=== PATIENT | male | born 1995 | race Caucasian/White ===

== ENCOUNTER 2023-07-03 23:59 | Observation (INO) ==
[2023-07-04] MEDS: SODIUM CHLORIDE 0.9% 1,000 ML IV STA (00:23)
[2023-07-04] MEDS: ONDANSETRON INJ 2 MG/ML 2 ML VIAL IV STA (00:25)
[2023-07-04] MEDS: HYDROmorphone INJ 0.5 MG/0.5 ML SYR IV STA ×2 (00:25→01:17)
[2023-07-04 00:50] LABS: Hemoglobin 13.7 g/dl (14.0-18.0); Mean Corpuscular Hemoglobin 26.4 pg (25.0-34.0); Mean Corpuscular Hgb Conc 33.4 g/dL (32.0-36.0); Platelet Count 271 K/uL (130-400); RDW Coefficient of Variation 12.5 % (11.5-14.5); RDW Standard Deviation 35.6 fL (36.4-46.3); Red Blood Count 5.19 M/uL (4.70-6.10); White Blood Count 9.19 K/ul (4.8-10.8)
[2023-07-04 00:56] LABS: Albumin Globulin Ratio 1.8 (0.9-2); Albumin Level 4.9 gm/dl (3.4-5.0); BUN Creatinine Ratio 15.4 (10-20); Bilirubin,Total 0.8 mg/dl (0.2-1.0); Calcium 10.1 mg/dl (8.6-10.3); Creatinine Clr Calc Pharmacy 105.4 ml/min; Est GFR (African American) 115.1 ml/min; Est GFR (Non-African American) 99.3 ml/min; Globulin 2.8 gm/dl (2.5-4.0); Potassium 3.1 mmol/L (3.5-5.1); Total Protein 7.7 gm/dl (6.0-8.3)
[2023-07-04] MEDS: OPTIRAY 320 500ml IV ONE (01:02)
--- NOTE | 2023-07-04 01:35 | CT Scan Report ---
Exam(s): CT ABDOMEN + PELVIS With Contrast IV Amt: 84 ML OPTIRAY 320 EXAM: CT Abdomen and Pelvis With Intravenous Contrast CLINICAL HISTORY: h/o gastrectomy, LUQ pain, SBO?. TECHNIQUE: Axial computed tomography images of the abdomen and pelvis with intravenous contrast. CTDI is 9.49 mGy and DLP is 475.47 mGy-cm. Automated exposure control was utilized for the study. A dose lowering technique was utilized adhering to the principles of ALARA. CONTRAST: Patient received 84 ML OPTIRAY 320 of IV contrast COMPARISON: CT abdomen and pelvis without/with contrast dated 01/18/2023 FINDINGS: Lung bases: Unremarkable. No mass. No consolidation. Mediastinum: Similar hiatal hernia. ABDOMEN: Liver: Periportal lucency/edema noted. Gallbladder and bile ducts: Unremarkable. No calcified stones. No ductal dilation. Pancreas: Unremarkable. No mass. No ductal dilation. Spleen: Unremarkable. No splenomegaly. Adrenals: Unremarkable. No mass. Kidneys and ureters: Unremarkable. No solid mass. No hydronephrosis. Stomach and bowel: Stable postsurgical changes consistent with previous gastric surgery. There is new mesenteric swirling in the central left abdomen with focal narrowing and attenuation of both the mid superior mesenteric artery and vein with mesenteric edema distally (series 3; images 144-170 and series 300; image 38). There is fluid and gas distention of several small bowel loops in the midline abdomen. No asymmetric bowel mucosal abnormality. PELVIS: Appendix: A normal caliber appendix is noted along the posterior aspect of the cecum. Bladder: Unremarkable. No mass. Reproductive: Unremarkable as visualized. ABDOMEN and PELVIS: Intraperitoneal space: Trace free fluid in the pelvis. No loculation. No free air. Bones/joints: No acute fracture. No dislocation. Soft tissues: Unremarkable. Vasculature: Unremarkable. No abdominal aortic aneurysm. Lymph nodes: Unremarkable. No enlarged lymph nodes. IMPRESSION: 1. There is new mesenteric swirling in the central left abdomen with focal narrowing and attenuation of both the mid superior mesenteric artery and vein with mesenteric edema distally (series 3; images 144-170 and series 300; image 38). 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 Urgent surgical consultation recommended. No pneumatosis or pneumoperitoneum identified at this time. 2. Fluid and gas distention of several small bowel loops in the midline abdomen. Favor developing enteritis or possible bowel obstruction. No asymmetric bowel mucosal abnormality. 3. Periportal lucency/edema noted. Favor hypervolemia over acute hepatitis or cholangitis given. Distention of the IVC. Communications: Call Doctor Volvulus Electronically signed by: Juan Sequeira MD 07/04/23 01:34 AM
[2023-07-04 01:50] LABS: Basophils # (auto) 0.07 K/uL (0.00-0.20); Basophils % (auto) 0.8 %; Eosinophils # (auto) 0.38 K/uL (0.00-0.50); Eosinophils % (auto) 4.1 %; Immature Granulocytes # (auto) 0.03 K/uL (0.01-0.20); Immature Granulocytes % (auto) 0.3 %; Lymphocytes # (auto) 4.88 K/uL (1.20-3.40); Lymphocytes % (auto) 53.1 %; Monocytes # (auto) 0.76 K/uL (0.11-0.59); Monocytes % (auto) 8.3 %; Neutrophils # (auto) 3.07 K/uL (1.40-6.50); Neutrophils % (auto) 33.4 %
[2023-07-04] MEDS: PIPERACILLIN/TAZOBACTAM 4.5 GM/100 ML BAG IV ONE (01:56)
--- NOTE | 2023-07-04 02:07 | Emergency Department Note ---
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 He states it began after eating dinner. Patient states he did have some retching, but he is unable to vomit. He states he had a sudden onset of pain that "put him on the ground." He has had intermittent episodes like this in the past but they seem to resolve. Had his original surgery at the [facility]. REVIEW OF SYSTEMS: A review of systems was performed with positives and pertinent negatives listed in the history of present illness. 10 systems were reviewed and are otherwise negative. ALLERGIES: see below MEDICATIONS: see below PMH: see below SOCIAL HISTORY: see below DDx: Bowel obstruction, viral gastroenteritis, dehydration, electrolyte abnormality, perforation, kidney stone among others PHYSICAL EXAM: Vital signs reviewed. General: Well-appearing 27 yo male, in some discomfort HEENT: No scleral icterus, PERRLA, neck supple. Moist mucous membrane Cardiovascular: Regular rate and rhythm, no extra sounds. Pulmonary: Clear to auscultation bilaterally, normal work of breathing. Abdomen: Soft, diffusely tender to palpation, positive tympany to percussion, slightly distended, positive bowel sounds. Musculoskeletal: Atraumatic, no peripheral edema. Neurologic: Patient awake alert and oriented x 3, speech is clear Skin: Warm, dry, no rash EMERGENCY DEPARTMENT COURSE/MDM: This patient was evaluated and appeared to be in no significant discomfort. IV access was obtained and laboratory work was drawn. Patient was placed on the air sampling and monitoring. Vital signs are noted to be stable. Patient was hydrated with normal saline solution, given IV Dilaudid and Zofran for his discomfort. KUB was performed and reveals multiple dilated loops of bowel, but no free air or clear evidence of obstruction to my review. CT imaging of the abdomen pelvis was performed given the patient's tympany and pain, and history of gastrectomy. Patient's laboratory work reveals a lactate of 2.3. Normal WBC and liver enzymes. CT imaging of the abdomen pelvis is reported by radiology as concerning for mesenteric volvulus. Immediate general surgery consultation was placed the patient was seen by George Dumas PA-C. Dr. BurnsJohnson agreed to take the patient to the operating room. Patient was made aware of the plan and agreed. MONITORING: An order for cardiac monitoring was placed and the patient is noted to be in a bradycardia at 59 beats per minute. RADIOLOGY: KUB to my interpretation reveals significant amount of air throughout the bowel, but no convincing evidence of obstruction or free air. CT imaging of the abdomen pelvis per radiology reveals a mesenteric volvulus. Please see final read below. DISPOSITION: Admitted/OR I have personally spent greater than 45 minutes of critical care time in the direct management of this patient. This includes bedside care, interpretation of diagnostic studies, and testing, discussion with consultants, patient, and family members, and other required patient management activities. This 45 minutes is in excess of all separately billable procedures. Past Med/Surg History Surgical History (Updated 07/05/23 @ 06:29 by Samira Rosen MD) H/O abdominal surgery (07/04/23) Diagnostic Laparoscopy with Lysis of Adhesions and Reduction of Internal Hernia - Karthik Sommers, Social History Smoking Status: Current every day smoker Tobacco Type: E-cigarettes / Vaping Second Hand Exposure: No; Do You Dip or Chew Tobacco: No; Tobacco Cessation Education Requested by Patient: No Hx Alcohol Use: No Hx Substance Use: No Preferred Language: Portuguese Communication Ability: Effective [place]uillon Debeader Required: No Beliefs That Will Affect Care: None Current Living Situation: Family Current Living Situation Comment: lives with fiance in apartment Other Information That Helps Us Care for You: No Feels Safe at Home: Yes Safety Concerns: Feels Safe At This Time Assistive Devices: None Allergies Allergies Allergy/AdvReac Type Severity Reaction Status Date / Time No Known Allergies Allergy Verified 07/04/23 00:22 Home Meds Home Medications Medication Instructions Recorded Confirmed No Known Home Medications 07/04/23 07/04/23 Results & Data (ED) Vital Signs Vital Signs - 24 hr 07/04/23 00:02 07/04/23 00:28 07/04/23 00:42 Temperature 37 C Temperature Source Temporal Artery Scan Pulse Rate 94 H 56 L Pulse Rhythm Regular Pulse Strength Normal Respiratory Rate 20 Respiratory Effort / Characteristics Non-Labored Spontaneous Respiratory Depth Normal Respiratory Pattern Regular Blood Pressure 138/84 Blood Pressure Mean 102 Blood Pressure Position Sitting Pulse Oximetry 98 98 Oxygen Delivery Method Room Air Room Air Sepsis Recent Fever Within 48 Hours No Sepsis New/Unexplained Change in Mental Status N/A Sepsis Action Taken by Nursing No Action Required 07/04/23 00:43 07/04/23 01:30 07/04/23 02:00 Temperature Temperature Source Pulse Rate 59 L 74 63 Pulse Rhythm Pulse Strength Respiratory Rate 17 18 13 Respiratory Effort / Characteristics Respiratory Depth Respiratory Pattern Blood Pressure 118/78 118/84 112/73 Blood Pressure Mean 91 95 86 Blood Pressure Position Pulse Oximetry 100 95 97 Oxygen Delivery Method Room Air Room Air Room Air Sepsis Recent Fever Within 48 Hours Sepsis New/Unexplained Change in Mental Status Sepsis Action Taken by Detention Medications Current Medication List: was personally reviewed by me Laboratory Data Attestation: I reviewed the patient's lab results. 07/04/23 00:16 07/04/23 14:06 Lab Results 07/04/23 07/04/23 Range/Units 00:16 01:55 WBC 9.19 (4.8-10.8) K/ul RBC 5.19 (4.70-6.10) M/uL Hgb 13.7 L (14.0-18.0) g/dl Hct 41.0 L (42.0-52.0) % MCV 79.0 L (80.0-100.0) fL MCH 26.4 (25.0-34.0) pg MCHC 33.4 (32.0-36.0) g/dL RDW Std Deviation 35.6 L (36.4-46.3) fL RDW Coeff of Rigoberto 12.5 (11.5-14.5) % Plt Count 271 (130-400) K/uL MPV 11.0 (9.4-12.4) fL Immature Gran % (Auto) 0.3 % Neut % (Auto) 33.4 % Lymph % (Auto) 53.1 % Rusk % (Auto) 8.3 % Eos % (Auto) 4.1 % Baso % (Auto) 0.8 % Neut # (Auto) 3.07 (1.40-6.50) K/uL Lymph # (Auto) 4.88 H (1.20-3.40) K/uL Rusk # (Auto) 0.76 H (0.11-0.59) K/uL Eos # (Auto) 0.38 (0.00-0.50) K/uL Baso # (Auto) 0.07 (0.00-0.20) K/uL Immature Gran # (Auto) 0.03 (0.01-0.20) K/uL PT 11.1 (9.0-12.0) Seconds INR 1.0 (0.9-1.1) Sodium 136 (136-145) mmol/L Potassium 3.1 L (3.5-5.1) mmol/L Chloride 100 (98-107) mmol/L Carbon Dioxide 20 L (21-32) mmol/L Anion Gap 16 H (3-11) BUN 16 (6-23) mg/dl Creatinine 1.04 (0.6-1.4) mg/dl Est Cr Clr Drug Dosing 105.4 ml/min Est GFR ( Amer) 115.1 ml/min Est GFR (Non-Af Amer) 99.3 ml/min BUN/Creatinine Ratio 15.4 (10-20) Glucose 164 H (70-99(Fasting)) mg/dl Lactate 2.3 H* (0.4-2.0) mmol/L Calcium 10.1 (8.6-10.3) mg/dl Total Bilirubin 0.8 (0.2-1.0) mg/dl AST 25 (13-39) U/L ALT 33 (7-52) U/L Alkaline Phosphatase 58 (34-104) U/L Total Protein 7.7 (6.0-8.3) gm/dl Albumin 4.9 (3.4-5.0) gm/dl Globulin 2.8 (2.5-4.0) gm/dl Albumin/Globulin Ratio 1.8 (0.9-2) Lipase 54 (11-82) U/L Administered Medications Sodium Chloride (Nss) 1,000 mls @ 125 mls/hr IV .Q8H MCKENNA Stop: 08/03/23 01:59 Last Admin: 07/05/23 02:58 Dose: 125 mls/hr Documented By: Infusion: 07/05/23 02:58 Dose: Infused Documented By: Admin: 07/04/23 19:38 Dose: 125 mls/hr Documented By: Infusion: 07/04/23 19:38 Dose: Infused Documented By: Admin: 07/04/23 14:12 Dose: 125 mls/hr Documented By: Infusion: 07/04/23 14:12 Dose: Infused Documented By: Admin: 07/04/23 06:13 Dose: 125 mls/hr Documented By: Infusion: 07/04/23 06:13 Dose: Infused Documented By: Admin: 07/04/23 02:15 Dose: 125 mls/hr Documented By: ANNETTE Acetaminophen (Ofirmev) 1,000 mg in 100 mls @ 400 mls/hr IV Q8H PRN PRN Reason: moderate pain Stop: 07/07/23 06:06 Last Infusion: 07/04/23 14:12 Dose: Infused Documented By: Admin: 07/04/23 13:39 Dose: 400 mls/hr Documented By: TAYE Morphine Sulfate (Morphine Sulfate 4 Mg/Ml 1 Ml Carp\\Vial) 3 mg IV Q3H PRN PRN Reason: Severe Pain (Scale 7, 8, 9,10) Stop: 07/18/23 06:06 Last Admin: 07/04/23 10:37 Dose: 3 mg Documented By: TAYE Discontinued Medications Benzocaine/Butamben/Tetracaine HCl (Benzocaine/Tetracain/Butam 50 Appln/5 Gm Can) 1 appln EXT NOW STA Stop: 07/04/23 01:31 Last Admin: 07/04/23 02:08 Dose: Not Given Documented By: ANNETTE Benzocaine/Butamben/Tetracaine HCl (Benzocaine/Tetracain/Butam 50 Appln/5 Gm Can) Confirm Administered Dose 50 appln EXT .STK-MED ONE Stop: 07/04/23 01:33 Last Admin: 07/04/23 02:08 Dose: Not Given Documented By: ANNETTE Bupivacaine HCl/Epinephrine Bitart (Bupivacaine/Epinephrine 0.5% Mpf 1:200,000 30 Ml Vial) Confirm Administered Dose 30 ml .ROUTE .STK-MED ONE Stop: 07/04/23 02:47 Last Admin: 07/04/23 04:45 Dose: 15 ml Documented By: [id number] Hydromorphone HCl (Hydromorphone Inj 0.5 Mg/0.5 Ml Syr) 0.5 mg IV NOW STA Stop: 07/04/23 00:17 Last Admin: 07/04/23 00:25 Dose: 0.5 mg Documented By: CHRIS Hydromorphone HCl (Hydromorphone Inj 0.5 Mg/0.5 Ml Syr) 0.5 mg IV NOW STA Stop: 07/04/23 01:08 Last Admin: 07/04/23 01:17 Dose: 0.5 mg Documented By: ANNETTE Sodium Chloride (Nss) 1,000 mls @ 999 mls/hr IV .Q1H1M STA Stop: 07/04/23 01:16 Last Infusion: 07/04/23 01:18 Dose: Infused Documented By: Admin: 07/04/23 00:23 Dose: 999 mls/hr Documented By: CHRIS Piperacillin Sod/Tazobactam Sod (Zosyn) 4.5 gm in 100 mls @ 200 mls/hr IV NOW ONE Stop: 07/04/23 02:17 Last Infusion: 07/04/23 02:20 Dose: Infused Documented By: Admin: 07/04/23 01:56 Dose: 200 mls/hr Documented By: ANNETTE Potassium Chloride (K Ermias / Wtr) 10 meq in 100 mls @ 100 mls/hr IV Q1H MCKENNA Stop: 07/04/23 04:14 Last Infusion: 07/04/23 08:00 Dose: Infused Documented By: Katheryn Admin: 07/04/23 06:33 Dose: 100 mls/hr Documented By: Infusion: 07/04/23 06:13 Dose: Infused Documented By: Admin: 07/04/23 02:15 Dose: 100 mls/hr Documented By: ANNETTE Ioversol (Optiray 320 500ml) 100 ml IV ONCE ONE Stop: 07/04/23 01:03 Last Admin: 07/04/23 01:02 Dose: 84 ml Documented By: FABIO Ondansetron HCl (Ondansetron Inj 2 Mg/Ml 2 Ml Vial) 4 mg IV NOW STA Stop: 07/04/23 00:17 Last Admin: 07/04/23 00:25 Dose: 4 mg Documented By: CHRIS Imaging Data Radiologist's Impression: Abdomen/Pelvis CT 07/04/23 00:26 CR Exam(s): CT ABDOMEN + PELVIS With Contrast IV Amt: 84 ML OPTIRAY 320 EXAM: CT Abdomen and Pelvis With Intravenous Contrast CLINICAL HISTORY: h/o gastrectomy, LUQ pain, SBO?. TECHNIQUE: Axial computed tomography images of the abdomen and pelvis with intravenous contrast. CTDI is 9.49 mGy and DLP is 475.47 mGy-cm. Automated exposure control was utilized for the study. A dose lowering technique was utilized adhering to the principles of ALARA. CONTRAST: Patient received 84 ML OPTIRAY 320 of IV contrast COMPARISON: CT abdomen and pelvis without/with contrast dated 01/18/2023 FINDINGS: Lung bases: Unremarkable. No mass. No consolidation. Mediastinum: Similar hiatal hernia. ABDOMEN: Liver: Periportal lucency/edema noted. Gallbladder and bile ducts: Unremarkable. No calcified stones. No ductal dilation. Pancreas: Unremarkable. No mass. No ductal dilation. Spleen: Unremarkable. No splenomegaly. Adrenals: Unremarkable. No mass. Kidneys and ureters: Unremarkable. No solid mass. No hydronephrosis. Stomach and bowel: Stable postsurgical changes consistent with previous gastric surgery. There is new mesenteric swirling in the central left abdomen with focal narrowing and attenuation of both the mid superior mesenteric artery and vein with mesenteric edema distally (series 3; images 144-170 and series 300; image 38). There is fluid and gas distention of several small bowel loops in the midline abdomen. No asymmetric bowel mucosal abnormality. PELVIS: Appendix: A normal caliber appendix is noted along the posterior aspect of the cecum. Bladder: Unremarkable. No mass. Reproductive: Unremarkable as visualized. ABDOMEN and PELVIS: Intraperitoneal space: Trace free fluid in the pelvis. No loculation. No free air. Bones/joints: No acute fracture. No dislocation. Soft tissues: Unremarkable. Vasculature: Unremarkable. No abdominal aortic aneurysm. Lymph nodes: Unremarkable. No enlarged lymph nodes. IMPRESSION: 1. There is new mesenteric swirling in the central left abdomen with focal narrowing and attenuation of both the mid superior mesenteric artery and vein with mesenteric edema distally (series 3; images 144-170 and series 300; image 38). 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 Urgent surgical consultation recommended. No pneumatosis or pneumoperitoneum identified at this time. 2. Fluid and gas distention of several small bowel loops in the midline abdomen. Favor developing enteritis or possible bowel obstruction. No asymmetric bowel mucosal abnormality. 3. Periportal lucency/edema noted. Favor hypervolemia over acute hepatitis or cholangitis given. Distention of the IVC. Communications: Call Doctor Volvulus Electronically signed by: Juan Sequeira MD 07/04/23 01:34 AM Discharge Plan Visit Data Chief Complaint: Abdominal Pain Stated Complaint: SEVERE UPPER LEFT SIDED ABDOMINAL PAIN ED Provider: Samira Rosen Discharge Problem: Volvulus, Abdominal pain, H/O resection of stomach Patient Disposition: Admitted As Inpatient Discharge Instructions Interventions: ED Discharge Assessment Last Done: 07/04/23 03:05
[2023-07-04] MEDS: BENZOCAINE/TETRACAIN/BUTAM 50 APPLN/5 GM CAN EXT STA (02:08)
[2023-07-04] MEDS: BENZOCAINE/TETRACAIN/BUTAM 50 APPLN/5 GM CAN EXT ONE (02:08)
[2023-07-04] MEDS ORDERED: fentaNYL citrate PF 100 MCG/2 ML VIAL ONE (02:09)
[2023-07-04] MEDS ORDERED: PROPOFOL IV EMULSION 10 MG/ML 20 ML VIAL IV ONE (02:10)
[2023-07-04] MEDS ORDERED: SUCCINYLCHOLINE CHLORIDE 20 MG/ML 10 ML VIAL IV ONE (02:10)
[2023-07-04] MEDS ORDERED: ARTIFICIAL TEARS OP OINT 3.5 GM TUBE ONE (02:13)
[2023-07-04] MEDS: POTASSIUM CHLORIDE / WTR 10 MEQ/100 ML PLCT IV SCH (02:15)
[2023-07-04] MEDS: SODIUM CHLORIDE 0.9% 1,000 ML IV SCH (02:15)
[2023-07-04] MEDS ORDERED: ROCURONIUM BROMIDE 10 MG/ML 5 ML VIAL IV ONE ×2 (02:17→04:32)
[2023-07-04] MEDS ORDERED: LIDOCAINE 2% 2 ML VIAL/AMP(20MG/ML) INFIL ONE (02:18)
--- NOTE | 2023-07-04 02:19 | History & Physical Report ---
Date of Service July 04, 2023 Assessment & Plan (1) Abdominal pain: Plan: I evaluated the patient in room 810 in the emergency department. After reviewing the patient's CAT scan along with reviewing with my attending physician, Dr. Haines it appears that the patient may either have a mesenteric volvulus or potentially an internal hernia. Due to the concern for small bowel or bowel ischemia we feel it is in the patient's best interest to proceed with an exploratory laparoscopy, possible exploratory laparotomy with lysis of adhesions and possible bowel resection and other surgical procedures as deemed necessary. The patient is agreeable to proceed. Additional recommendations will be forthcoming based on operative findings and patient's recovery thereafter. As the patient has had his previous surgeries at the [facility] I did attempt to contact the surgical department to discuss this case with them. At the time of this dictation I had been unsuccessful in reaching them. History of Present Illness Chief Complaint: Abdominal pain Primary Care Provider: NO PCP This is a 27-year-old male who presented the emergency department secondary to abdominal pain. Patient notes that his abdominal pain began approximately 2 hours prior to presentation to the emergency department. He says that the pain is located primarily to the left of his umbilicus without modifying factors. He has had associated nausea and vomiting but has not had any fevers. Patient has a complex surgical history as he has history of gastric cancer for which she underwent a gastrectomy on September 22, 2022 at [facility] with Dr. Joel Green. According to the patient he has had a Jannette-en-Y reconstruction. The patient also had a feeding jejunostomy tube that has since been removed. Since his pain began as he has not had any bowel movements has not passed any flatus. Since arrival to the hospital patient has had labs and imaging which independent reviewed. Labs including CBC were white blood cell count was normal. Patient's platelet count was noted be normal as well. Hemoglobin and hematocrit were 13.7 and 41.0. Chemistry profile showed sodium was normal. His potassium is 3.1. BUN and creatinine were both within the normal range. There is no elevation of LFTs or lipase. A lactic acid level was performed and was elevated at 2.3. CT scan of the abdomen pelvis showed the patient had mesenteric swirling in the central abdomen causing narrowing and attenuation of the mid superior mesenteric artery and vein. Findings were concerning for mesenteric volvulus. At the time of my interview the patient was lying in bed. He was in no distress but did seem to have continued abdominal discomfort. Allergies Allergy/AdvReac Type Severity Reaction Status Date / Time No Known Allergies Allergy Verified 07/04/23 00:22 Home Medications Medication Instructions Recorded Confirmed Type No Known Home Medications 07/04/23 07/04/23 History Past Med/Surg History Social History Smoking Status: Never smoker Preferred Language: Lithuanian Feels Safe at Home: Yes Review of Systems Constitutional: no fever and no chills Ear, Nose, Mouth, Throat: no hearing loss Respiratory: no cough and no dyspnea Cardiovascular: no chest pain Gastrointestinal: as per Subjective / HPI Genitourinary: no dysuria Musculoskeletal: no back pain Integumentary: no rash Neurologic: no localized weakness Physical Exam Constitutional: well developed and well nourished Patient is in no distress but is having continued abdominal discomfort Eyes: no conjunctival abnormality ENMT: Ears: no hearing impairment and no external ear abnormality Mouth: no oropharynx abnormality Neck: trachea midline Respiratory: normal respiratory effort; no respiratory distress and no labored breathing Cardiovascular: Rate/Rhythm: regular rate and regular rhythm Gastrointestinal (Abdomen): Abdomen is soft and nondistended. Bowel sounds are present. The patient had a well-healed midline incision. I did not appreciate any hernias. The patient did have pain with palpation to the left of the umbilicus. Musculoskeletal: no calf tenerness Skin: no rash Neurologic: moves all extremities Psychiatric: A+Ox3, euthymic affect Results & Data Results & Data Vital Signs (Past 12 Hours) Vital Signs Temp Pulse Resp BP Pulse Ox O2 Del Method 07/04/23 00:43 59 L 17 118/78 100 Room Air 07/04/23 00:42 56 L 07/04/23 00:28 98 Room Air 07/04/23 00:02 37 C 94 H 20 138/84 98 Room Air Supervising Physician Co-Signing Physician Notes I have discussed this with the surgical PA, the patient has been seen and examined. Plan is for the operating room for exploration and all other indicated procedures. Consent for possible laparoscopy, exploratory laparotomy, possible lysis of adhesions and other indicated procedures. PG Care Time/CCT Total # of Minutes Spent Total Time Spent with Patient: Total time spent is greater than 50% in coordination of care (as documented) at patient's floor/unit and/or counseling patient: Coding Level of Care Code 44432 INT INP/OBS CARE MIN Diagnoses Abdominal pain R10.9
--- NOTE | 2023-07-04 02:23 | Anesthesiology Consultation ---
Date of Service July 04, 2023 Assessment & Plan Chart Review Chart Review: Acceptable Risk for Surgery and Patient NOT seen in Pre Admission Testing Consults Requested none History Surgery Operation Date: 07/04/23 03:00 Proposed Procedures p Bowel Resection - Karthik Sommers DO Height/Weight Height: 6 ft Weight: 68.6 kg Allergies Allergy/AdvReac Type Severity Reaction Status Date / Time No Known Allergies Allergy Verified 07/04/23 00:22 Medications Home Medications Medication Instructions Recorded Confirmed Last Taken No Known Home Medications 07/04/23 07/04/23 Unknown Active Medications Generic Name Dose Route Start Last Admin Trade Name Freq PRN Reason Stop Dose Admin Piperacillin Sod/Tazobactam Sod 4.5 gm in 100 mls @ 200 mls/hr 07/04/23 01:48 07/04/23 01:56 Zosyn IV 07/04/23 02:17 200 mls/hr NOW ONE Administration Sodium Chloride 1,000 mls @ 125 mls/hr 07/04/23 02:00 07/04/23 02:15 Nss IV 08/03/23 01:59 125 mls/hr .Q8H MCKENNA Administration Potassium Chloride 10 meq in 100 mls @ 100 mls/hr 07/04/23 02:15 07/04/23 02:15 K Ermias / Wtr IV 07/04/23 04:14 100 mls/hr Q1H MCKENNA Administration Social History Smoking Status: Never smoker Review of Systems Constitutional: no fever and no chills Ear, Nose, Mouth, Throat: no hearing loss Respiratory: no cough and no dyspnea Cardiovascular: no chest pain Gastrointestinal: as per Subjective / HPI Genitourinary (Male): no dysuria Musculoskeletal: no back pain Integumentary: no rash Neurologic: no localized weakness Physical Exam Vital Signs Last Vital Signs Temp 37 C 07/04/23 00:02 Pulse 63 07/04/23 02:00 Resp 13 07/04/23 02:00 BP 112/73 07/04/23 02:00 Pulse Ox 97 07/04/23 02:00 O2 Del Method Room Air 07/04/23 02:00 Constitutional well developed and well nourished Eyes no conjunctival abnormality ENMT Ears: no hearing impairment and no external ear abnormality Mouth: no oropharynx abnormality Neck trachea midline Respiratory normal respiratory effort; no respiratory distress and no labored breathing Cardiovascular Rate/Rhythm: regular rate and regular rhythm Neurologic moves all extremities Testing Laboratory Results 07/04/23 00:16 07/04/23 00:16
[2023-07-04 03:10] LABS: Prothrombin Time 11.1 Seconds (9.0-12.0)
[2023-07-04] MEDS ORDERED: SODIUM CHLORIDE 0.9% PF INJ 10 ML VIAL ONE ×2 (03:18)
[2023-07-04] MEDS ORDERED: ceFAZolin 330 MG/ML 1 GM VIAL ONE ×2 (03:18)
[2023-07-04] MEDS ORDERED: MIDAZOLAM HCL 1 MG/ML 2ML VIAL ONE (03:21)
[2023-07-04] MEDS ORDERED: DEXAMETHASONE SOD INJ 4 MG/ML VIAL ONE ×2 (03:47)
[2023-07-04] MEDS ORDERED: ACETAMINOPHEN 1000 MG/100 ML IV IV ONE (04:05)
[2023-07-04] MEDS ORDERED: DexMEDEtomidine HCL IV 100 MCG/ML VIAL IV ONE (04:05)
[2023-07-04] MEDS ORDERED: ePHEDrine sulfate 50 MG/ML AMP IV PRN (04:17)
[2023-07-04] MEDS ORDERED: PROMETHAZINE HCL 6.25 MG in SODIUM CHLORIDE 0.9% 50 ML IV PRN (04:17)
[2023-07-04] MEDS ORDERED: ATROPINE SULFATE 0.1 MG/ML 10ML SYR IV PRN (04:17)
[2023-07-04] MEDS ORDERED: HYDROmorphone INJ 1 MG/ML SYRINGE IV PRN (04:17)
[2023-07-04] MEDS ORDERED: ONDANSETRON INJ 2 MG/ML 2 ML VIAL ONE (04:39)
[2023-07-04] MEDS ORDERED: SUGAMMADEX SODIUM 200 MG/2 ML VIAL IV ONE (04:41)
[2023-07-04] MEDS: BUPIVACAINE/EPINEPHRINE 0.5% MPF 1:200,000 30 ML VIAL ONE (04:45)
--- NOTE | 2023-07-04 05:09 | Operative Report ---
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, Internal Hernia Post-Op Diagnosis: Internal Hernia I identified the patient and participated in the time-out.: Yes Procedure Operation Date: 07/04/23 03:00 Actual Procedures p Diagnostic Laparoscopy with Lysis of Adhesions and Reduction of Internal Hernia - Karthik Sommers DO Surgeon Karthik Sommers DO Surgical Instrument Maker JENNIE Quinones Estimated Blood Loss 1 Findings See Below Specimens None Drains None Anesthesia Type General Complications None Indications Intestinal volvulus, suspected internal hernia Description of Procedure The patient was brought back to the operating room and placed on the operating room table in supine position. He was connected to cardiac and oxygen monitoring. SCDs were applied to bilateral lower extremities. The patient was administered general anesthesia and a secure airway was established. A Fraser catheter was inserted. The abdomen was prepped and draped in typical sterile fashion and timeout was conducted. A small stab incision was made after injecting local anesthetic at the infraumbilical area. A Veress needle was used to access the intra-abdominal space and pneumoperitoneum was established using CO2 to local pressure 15 mmHg. Once this pressure was released, a 5 mm trocar was inserted with direct visualization using a Visiport and 5 mm laparoscope. 2 additional 5 mm trocars were inserted after injecting local anesthetic along the left side of the abdomen at the mid and lower quadrant. The mid quadrant incision was made over previous drain site scar. Once entering the abdomen an area of moderately dilated bowel was identified. A loop of bowel also extended to the anterior abdominal wall which was the site of his previous jejunostomy tube. This was not noted to be the source of the internal hernia. Loose flimsy adhesion was taken down using a laparoscopic EndoShears and a more dense adhesion to 1 specific site on the jejunum was not tampered with again as this was not the site of internal hernia or the cause of any issue. Graspers were used to begin mobilization. The mayur limb was identified extending through the mesentery of the colon and was traced back to an Mayur-en-Y anastomosis. Shortly beyond this anastomosis the bowel loop was tangled around other loops of bowel creating an internal hernia that was subsequently relieved with mobilization. The biliary limb was traced to the ligament of Treitz. To be sure that the internal hernia was completely reduced, the bowel was then run from the terminal ileum to the anastomosis. The appendix was normal in appearance in this process there was a small twist of bowel noted again but this was easily resolved. This area was thoroughly inspected but there were no mesenteric defects to be found. The superior mesenteric vessels were identified without kinking or twisting. Instruments were removed, pneumoperitoneum was evacuated and the trocars were removed. The laparoscopic incisions were closed with 4-0 Monocryl. The patient tolerated the procedure well. He was awakened from anesthesia, the secure airway and Fraser were removed. The patient was transferred to recovery in stable condition. I attest to the content of the Intraoperative Record and any orders documented therein. Any exceptions are noted below.
--- NOTE | 2023-07-04 05:20 | Anesthesiology Progress Note ---
Date of Service July 04, 2023 Anesthesia Post Procedure Vital Signs Vital Signs: Temp Pulse Pulse Resp BP BP Pulse Ox 07/04/23 05:08 36.5 C 79 12 112/58 L 100 07/04/23 02:30 60 12 110/66 97 07/04/23 02:00 63 13 112/73 97 07/04/23 01:30 74 18 118/84 95 07/04/23 00:43 59 L 17 118/78 100 07/04/23 00:42 56 L 07/04/23 00:28 98 07/04/23 00:02 37 C 94 H 20 138/84 98 O2 Del Method 07/04/23 05:08 Room Air 07/04/23 02:30 Room Air 07/04/23 02:00 Room Air 07/04/23 01:30 Room Air 07/04/23 00:43 Room Air 07/04/23 00:42 07/04/23 00:28 Room Air 07/04/23 00:02 Room Air Pain Intensity Abdomen: Pain Intensity: 10 Transfer of Care Handoff Completed per policy Notes Mental Status: alert / awake / arousable Patient Amnestic to Procedure: Yes Nausea / Vomiting: adequately controlled Pain: adequately controlled Airway Patency, RR, SpO2: stable & adequate BP & HR: stable & adequate Hydration State: stable & adequate Anesthetic Complications: no major complications apparent and Pt Satisfied with anesthetic care
[2023-07-04] MEDS ORDERED: ONDANSETRON INJ 2 MG/ML 2 ML VIAL IV PRN (06:07)
--- NOTE | 2023-07-04 07:02 | XRay Report ---
KUB CLINICAL HISTORY: Abdominal pain. COMPARISON STUDY: CT of the abdomen and pelvis January 18, 2023. FINDINGS: Bowel anastomosis is noted. There is no evidence for free air on supine exam. Moderate amou nt of stool within the ascending colon is present. There are mildly dilated gas-filled loops of small and large bowel. IMPRESSION: Multiple mildly dilated gas-filled loops of small and large bowel. The findings could re flect a bowel obstruction or ileus. ACT 112: Negative or not required by law. Electronically signed by: Wilder Hunter M.D. 07/04/2023 7:00 AM
[2023-07-04] MEDS: MoRPHine SULFATE 4 MG/ML 1 ML CARP\\VIAL IV PRN (10:37)
[2023-07-04 11:01] LABS: Appearance Urine Cloudy (Clear); Bacteria Urine Automated 1+ (Negative); Bilirubin Urine Negative (Negative); Blood Urine Negative (Negative); Color Urine Yellow; Epithelial Cell Urine Auto >30 /lpf (0-5); Glucose Urine UA Negative (Negative); Ketones Urine Negative (Negative); Leukocyte Esterase Urine Negative (Negative); Nitrite Urine Negative (Negative); Protein Urine Trace (Negative); RBC Urine Automated 0-4 /hpf (0-4); Specific Gravity Urine 1.044 (1.000-1.030); Urobilinogen Urine Negative (Negative); WBC Urine Automated >30 /hpf (0-5)
[2023-07-04] MEDS: ACETAMINOPHEN 1,000 MG/100 ML VIAL IV PRN (13:39)
[2023-07-04 14:51] LABS: BUN Creatinine Ratio 12.4 (10-20); Calcium 9.7 mg/dl (8.6-10.3); Creatinine Clr Calc Pharmacy 123.1 ml/min; Est GFR (African American) 137.7 ml/min; Est GFR (Non-African American) 118.8 ml/min; Potassium 4.7 mmol/L (3.5-5.1)
[2023-07-05 08:17] LABS: Basophils # (auto) 0.02 K/uL (0.00-0.20); Basophils % (auto) 0.3 %; Eosinophils # (auto) 0.06 K/uL (0.00-0.50); Hematocrit (blood only) 33.9 % (42.0-52.0); Hemoglobin 11.5 g/dl (14.0-18.0); Immature Granulocytes # (auto) 0.01 K/uL (0.01-0.20); Immature Granulocytes % (auto) 0.2 %; Lymphocytes # (auto) 2.15 K/uL (1.20-3.40); Lymphocytes % (auto) 35.2 %; Mean Corpuscular Hemoglobin 26.8 pg (25.0-34.0); Mean Corpuscular Hgb Conc 33.9 g/dL (32.0-36.0); Mean Platelet Volume 11.3 fL (9.4-12.4); Monocytes # (auto) 0.48 K/uL (0.11-0.59); Monocytes % (auto) 7.9 %; Neutrophils # (auto) 3.39 K/uL (1.40-6.50); Neutrophils % (auto) 55.4 %; Platelet Count 165 K/uL (130-400); RDW Coefficient of Variation 12.8 % (11.5-14.5); Red Blood Count 4.29 M/uL (4.70-6.10); White Blood Count 6.11 K/ul (4.8-10.8)
[2023-07-05 08:56] LABS: Calcium 9.2 mg/dl (8.6-10.3); Potassium 3.9 mmol/L (3.5-5.1)
[2023-07-05 09:01] LABS: BUN Creatinine Ratio 13.6 (10-20); Creatinine Clr Calc Pharmacy 135.3 ml/min; Est GFR (African American) 143.2 ml/min; Est GFR (Non-African American) 123.5 ml/min
--- NOTE | 2023-07-05 15:08 | Surgery Progress Note ---
<Statement entered by Karthik Sommers, DO - 07/06/23 19:30> I saw and examined this patient with the surgical PA and agreed with this plan. Date of Service July 05, 2023 Assessment & Plan (1) Volvulus: Plan: pod#1 diagnostic laparoscopic, lysis of adhesions pt doing well. wbc 6. vss pt passing gas, tolerating diet advancement pain controlled on current regimen okay for discharge to home, dispo instructions reviewed f/u in clinic with dr. sommers in 2 weeks time Admission and Anticipated Discharge Date Admission Date: July 04, 2023 Subjective patient feels well. tolerating diet. no nausea/vomiting. walking the halls frequently Physical Exam Physical Exam: awake/alert, no distress Gastrointestinal (Abdomen): Inspection/Auscultation: + abdominal surgical incision (c/d/i with skin glue, no signs of infection) Percussion/Palpation: + abdomen tender (expected mallory incisional discomfort ) and abdomen soft Results & Data Vital Signs (Past 12 Hours) Vital Signs Temp Pulse Resp BP Pulse Ox O2 Del Method 07/05/23 07:28 97.9 F 70 18 113/64 98 Room Air 07/05/23 03:43 97.9 F 53 L 18 109/62 97 Room Air PG Care Time/CCT Total # of Minutes Spent Total Time Spent with Patient: Total time spent is greater than 50% in coordination of care (as documented) at patient's floor/unit and/or counseling patient: Coding Level of Care Code 47351 Post Operative Follow-Up Diagnoses Volvulus K56.2
--- NOTE | 2023-07-06 12:06 | Discharge Summary ---
<Statement entered by Karthik Sommers DO - 07/06/23 19:28> I have seen and examined this patient the day of discharge with the surgical PA. I agreed with this plan. Date of Service July 06, 2023 DOA: 07/04/23 DOD: 07/05/23 Admission HPI Per Admitting Provider This is a 27-year-old male who presented the emergency department secondary to abdominal pain. Patient notes that his abdominal pain began approximately 2 hours prior to presentation to the emergency department. He says that the pain is located primarily to the left of his umbilicus without modifying factors. He has had associated nausea and vomiting but has not had any fevers. Patient has a complex surgical history as he has history of gastric cancer for which she underwent a gastrectomy on September 22, 2022 at [facility] [place] with Dr. Joel Green. According to the patient he has had a Jannette-en-Y reconstruction. The patient also had a feeding jejunostomy tube that has since been removed. Since his pain began as he has not had any bowel movements has not passed any f latus. Since arrival to the hospital patient has had labs and imaging which independent reviewed. Labs including CBC were white blood cell count was normal. Patient's platelet count was noted be normal as well. Hemoglobin and hematocrit were 13.7 and 41.0. Chemistry profile showed sodium was normal. His potassium is 3.1. BUN and creatinine were both within the normal range. There is no elevation of LFTs or lipase. A lactic acid level was performed and was elevated at 2.3. CT scan of the abdomen pelvis showed the patient had mesenteric swirling in the central abdomen causing narrowing and attenuation of the mid superior mesenteric artery and vein. Findings were concerning for mesenteric volvulus. At the time of my interview the patient was lying in bed. He was in no distress but did seem to have continued abdominal discomfort. Discharge Data Consultations 07/04/23 02:04 ED Decision to Admit Stat 07/05/23 15:08 Burn CD for patient Stat Procedures Performed Operation Date: 07/04/23 03:00 Actual Procedures p Diagnostic Laparoscopy with Lysis of Adhesions and Reduction of Internal Hernia - Karthik Sommers DO Hospital Course (1) Abdominal pain: Pt. presented to the hospital on 07/04/[address] imaging revealed concern for mesenteric volvulus. He was therefore taken to the operating room, where he underwent a laparoscopic reduction of an internal hernia. Following the surgery he had an uneventful hospital course. His diet was advanced in the appropriate fashion. He was was deemed stable for d/c on 07/05/23. He was instructed on appropriate wound care, diet, and activy. He will follow up with Dr. Sommers in 1-2 weeks. Coding Level of Care Code 93116 IN/OBS DISCH 30 MIN/LESS Diagnoses Abdominal pain R10.84 Abdominal location: generalized
== END 2023-07-05 15:52 | disposition home or self-care (01) | DRG 331 ==
LOC: ED 23:59 → OR 07-04 03:02 → INTOOBSV 07-04 04:57 → 3N 07-04 04:57